=== PATIENT | female | born 1950 | race Caucasian/White ===

== ENCOUNTER → 2017-03-07 07:08 | Outpatient (CLI) | payer MEDICARE, MEDICAID, SELFPAY ==
--- NOTE | 2017-03-08 08:45 | PFT ---
INTRODUCTION: The patient is a 66-year-old female currently under the care of myself the presents for pulmonary function testing secondary to a diagnosis of dyspnea. Respiratory therapy reports good patient effort and reports no other concerns. Bronchodilators were used during testing. INTERPRETATION: Forced expiration spirometry demonstrates no evidence of a large airways obstructive ventilatory defect. There was no significant response to aerosolized bronchodilators, based upon strict ATS criteria. Spirograms are of good quality and plateau normally. The respiratory flow volume loop appears normal. Body plethysmography was performed and reveals lung volumes to be within normal limits. The airway resistance is within normal limits. Diffusing capacity by single breath CO is moderately reduced at 54% of predicted. IMPRESSION: These pulmonary function studies demonstrate the presence of an isolated moderate reduction in diffusing capacity, which may be related to an underlying pulmonary vascular disorder such as pulmonary hypertension. A surface echocardiogram can be obtained for further evaluation, if clinically indicated.
== END ==
PROVIDERS: Family Provider Family Medicine; PCP Family Medicine; Visit Provider Nurse Practitioner Acute Care
DX: R06.00 Dyspnea, unspecified (principal)
CPT/HCPCS: 94060; 94726; 94729

== ENCOUNTER 2019-08-28 10:44 | Emergency (ER) | payer MEDICARE, MEDICAID, SELFPAY ==
[2018-03-30 11:10] VITALS: BMI 38.6
[2019-08-28 10:47] VITALS: BP 136/67; PULSE 77; RESP 16; TEMP 37.1; O2SAT 95; BMI 41.7
--- NOTE | 2019-08-28 11:05 | ED.DCSUM_ITS ---
- ER Visit Summary Date of Service: 08/28/19 Chief Complaint: Right knee pain History of Present Illness: The patient is a 69 F who presents with right knee pain that has been getting worse over the past week. Patient states that last night she felt a pop behind her right knee. Patient states that since that time she has been having trouble ambulating and weightbearing. Patient describes her pain is sharp and stabbing. Patient states her right knee feels weak. Patient states she normally walks with a cane and has been using that to help her get around. Patient denies any paresthesias. Patient denies any other injuries. Physical Examination: Vital signs are stable. Patient is afebrile. Patient is in no acute distress. Musculoskeletal exam reveals tenderness over the posterior aspect of the right knee. There is no effusion. There is no bony crepitance or step-off. There is no edema or ecchymosis. Range of motion was limited in all motions of the right knee secondary to pain. Patient was guarding on examination but there is no laxity appreciated. Pedal pulses are equal bilaterally. Capillary refill was less than 2 seconds in all digits. There are no sensory deficits noted. There is no calf tenderness or edema. Test Results: X-rays of the right knee were obtained. There is some mild degenerative changes but no acute fracture. This was interpreted by the radiologist and reviewed by myself. Emergency Department Course and Treatment: Patient was given an injection of morphine. Patient was given a knee immobilizer. Patient was instructed to ice and elevate the right knee. Patient was instructed to follow-up with her primary care physician in 5 to 7 days. Patient was given a prescription for a short course of Brewster. Patient was instructed to return if worse in any way. Patient understood and was agreeable with the plan. All questions were answered. Disposition: Discharge home Impression: Right knee pain This note was generated with [employer] dictation software. It may contain incorrect words, spelling, and punctuation that were not noted in review of the chart prior to signing ED Disposition - Plan for ED Patient: Disposition: Home or Assisted Living Diagnosis: Right knee pain Instructions: ED Knee Pain [facility] Prescriptions: Hydrocodone Bitart/Apap 5-325 [Brewster 5MG-325MG] 1 tab PO Q6H PRN PRN 3 Days #10 tab PRN Reason: Pain Prescription Printed Referrals: Mir Todd MD [Primary Care Provider] - 5-7 Days
[2019-08-28] MEDS: Morphine 4 MG/ML Syringe IM (11:18)
--- NOTE | 2019-08-28 12:01 | RAD_ITS ---
STUDY: X-RAY - RIGHT KNEE REASON FOR EXAM: Female, 69 years old. RIGHT KNEE PAIN. NKI TECHNIQUE: 4 view(s) of the knee. COMPARISON: None. FINDINGS: Normal visualized distal femur. Normal visualized proximal tibia and fibula. Normal proximal tibiofibular articulation. There is mild degenerative arthrosis of the medial femorotibial compartment. There is mild degenerative arthrosis of the lateral femorotibial compartment. There is mild degenerative arthrosis of the patellofemoral articulation. The soft tissue structures are unremarkable. RAD/Knee 4 or More Views IMPRESSION: Mild arthrosis Electronically Signed: Juan M Lebron MD at 12:16 EDT , Service support ,
[2019-08-28 14:11] VITALS: RESP 20
== END 2019-08-28 14:14 | disposition home or self-care (01) ==
PROVIDERS: Emergency Provider Emergency Medicine; PCP Family Medicine
DX: M25.561 Pain in right knee (principal); R11.0 Nausea; Z79.899 Other long term (current) drug therapy
CPT/HCPCS: 73564; 96372; 99284

== ENCOUNTER 2020-01-27 15:28 | Emergency (ER) | payer MEDICARE, MEDICAID, SELFPAY ==
[2020-01-27 15:36] VITALS: BP 123/75; PULSE 85; RESP 16; TEMP 36.3; O2SAT 95; BMI 37.2
--- NOTE | 2020-01-27 16:05 | RAD_ITS ---
STUDY: X-RAY - LUMBAR SPINE REASON FOR EXAM: Female, 69 years old. FALL. LOW BACK PAIN. TECHNIQUE: 3 view(s) of the lumbar spine were obtained. COMPARISON: None FINDINGS: Normal lumbar lordosis. There is no substantial scoliosis. There is 4 mm anterolisthesis of L3 relative to L2, 5 mm anterolisthesis of L4 relative to L3, 4 mm anterolisthesis of L5 relative to L4. Otherwise normal normal alignment of the vertebrae. There is multilevel endplate spondylosis of the lumbar vertebrae. There is multi-level degenerative disc disease with multi-level disc space narrowing. Findings most pronounced at L2-L3 and L3-L4. There is no demonstrated fracture. The soft tissue structures are unremarkable. RAD/Lumbar Spine 2 or 3 Views IMPRESSION: Degenerative changes. No acute abnormalities. Electronically Signed: Lio Lilly MD at 16:40 EST , Service support ,
--- NOTE | 2020-01-27 16:05 | RAD_ITS ---
STUDY: X-RAY - LEFT SHOULDER REASON FOR EXAM: Female, 69 years old. FALL. LEFT SHOULDER PAIN. TECHNIQUE: 4 view(s) of the shoulder. COMPARISON: None. FINDINGS: There is moderate degenerative arthrosis of the glenohumeral articulation. Prominent inferior osteophyte off of the humeral head. There is hypertrophic osteoarthrosis of the acromioclavicular joint with inferior osseous spur formation. Normal acromion. Normal humeral head and visualized proximal humerus. The soft tissue structures are unremarkable. There is no demonstrated fracture. Normal visualized pulmonary apex. RAD/Shoulder min 2 Views IMPRESSION: No acute fracture or dislocation. Prominent degenerative changes. Electronically Signed: Lio Lilly MD at 16:41 EST , Service support ,
--- NOTE | 2020-01-27 16:06 | ED.VIS.GEN ---
History of Present Illness Chief Complaint: Fall Informant: Patient Onset: Today Context: Sudden Onset Timing: Continuous Current Severity: Moderate Maximum Severity: Moderate Narrative: The patient is a 69-year-old female with medical history significant for diabetes, hypertension, and bipolar disorder presents to the emergency department after a fall. Patient states that she was walking in her trailer. She states she lost her balance and fell. She landed on her left knee and struck her left shoulder. She states she did not hit her head. She denies loss of consciousness. 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 She is still able to ambulate. She states she took some Tylenol this morning which seemed to help. She states she is otherwise been in her normal state of health. Prior similar symptoms: No Recent Illness/Hospitalization: No Past Medical History - Allergies and Home Meds Allergies/Adverse Reactions: Allergies lamotrigine [From Lamictal] Allergy (Verified 01/27/20 15:41) Rash naproxen Allergy (Verified 01/27/20 15:41) Shortness of breath propranolol Allergy (Verified 01/27/20 15:41) Other MUSCLE CRAMPS divalproex sodium [From Depakote] Adverse Reaction (Verified 01/27/20 15:41) Unknown risperidone [From Risperdal] Adverse Reaction (Verified 01/27/20 15:41) Unknown Primary Care Physician: Mir Todd MD [Primary Care Provider] - Prior records reviewed: Yes Past Medical History: - - Bipolar disorder, diabetes, hypertension Surgical History: noncontributory Smoking Status: Former smoker - Family History Paternal Family History: Family History (Last Reviewed 03/30/18 @ 11:09 by Margaret Harding) Father Heart disease Sister Heart disease Family History: Reports: Heart Disease Review of Systems General: Denies: Chills, Fever, Sweats Eyes: Denies: Visual changes - bilaterally, Diplopia ENT: Denies: Rhinorrhea, Sore throat Cardiovascular: Denies: Chest pain, Palpitations Respiratory: Denies: Dyspnea, Cough, Dyspnea on exertion Gastrointestinal: Denies: Abdominal pain, Nausea, Vomiting, Diarrhea, Melena, Hematochezia Genitourinary: Denies: Dysuria, Hematuria, Frequency Musculoskeletal: Denies: Back pain, Extremity Pain Skin: Denies: Rash, Wounds Neurological: Denies: Headache, Weakness, Numbness Physical Exam Vital Signs/Narrative: Vital Signs Temp Pulse Resp BP Pulse Ox 01/27/20 15:36 97.4 F L 85 16 123/75 H 95 Inital Vital Signs reviewed: Yes General: Well nourished, Well developed, No Acute Distress Head: Normocephalic, Atraumatic Eyes: Perrl, EOMI ENT: Moist mucous membranes, No rhinorrhea Neck: Supple, Nontender Cardiovascular: Regular rate, Regular rhythm, No murmurs Respiratory: No distress, CTA bilaterally, Chest nontender Abdomen: Soft, Nontender, Nondistended, Normal bowel sounds Back: Normal Inspection. Negative for: CVA tenderness, Spinal tenderness Extremities: No edema, Tenderness - Mild tenderness over anterior left knee. Extension preserved. No gross laxity. Mild pain with abduction of the left shoulder with no laxity. Axillary nerve preserved. Skin: Normal color, No rash Neurological: Alert, Oriented x3, Cranial nerves II-XII grossly intact, Normal Strength, Normal Sensation Psychological: Normal affect, Normal Mood Diagnostic/Tx/Re-eval Clinical Impression(s) from Imaging Studies Lumbar Spine X-Ray 01/27/20 16:05 IMPRESSION: Degenerative changes. No acute abnormalities. Electronically Signed: Lio Lilly MD at 16:40 EST , Service support , Shoulder X-Ray 01/27/20 16:05 IMPRESSION: No acute fracture or dislocation. Prominent degenerative changes. Electronically Signed: Lio Lilly MD at 16:41 EST , Service support , Knee X-Ray 01/27/20 16:10 IMPRESSION: Normal x-ray examination of the knee. Electronically Signed: Lio Lilly MD at 16:38 EST , Service support , - Medical Decision Making Patient presents after mechanical fall. She was given a Tylenol to help with her pain. I did obtain plain films of the left shoulder, lumbar spine, and left knee. These were reviewed by both myself and the radiologist. There is no evidence of fracture, dislocation or other dangerous process. At this point, I do feel that her symptoms are likely secondary to contusion. The patient was reassured. At this point, she will be discharged home. She is comfortable with this plan of care. Impression 1. Mechanical fall 2. Left shoulder contusion 3. Left knee contusion ED Disposition - Plan for ED Patient: Instructions: ED Mechanical Fall Referrals: Mir Todd MD [Primary Care Provider] -
--- NOTE | 2020-01-27 16:10 | RAD_ITS ---
STUDY: X-RAY - LEFT KNEE REASON FOR EXAM: Female, 69 years old. FALL. LEFT KNEE PAIN. TECHNIQUE: 4 view(s) of the knee. COMPARISON: None. FINDINGS: Normal visualized distal femur. Normal visualized proximal tibia and fibula. Normal proximal tibiofibular articulation. There is no demonstrated fracture. Normal medial femorotibial compartment. Normal lateral femorotibial compartment. Normal patellofemoral articulation. There is no demonstrated joint effusion. The soft tissue structures are unremarkable. RAD/Knee 4 or More Views IMPRESSION: Normal x-ray examination of the knee. Electronically Signed: Lio Lilly MD at 16:38 EST , Service support ,
[2020-01-27] MEDS: Acetaminophen 500 MG Tablet 1000 MG PO (16:45)
== END 2020-01-27 16:53 | disposition home or self-care (01) ==
LOC: ED 16:46
PROVIDERS: Emergency Provider Emergency Medicine; PCP Family Medicine
DX: S40.012A Contusion of left shoulder, initial encounter (principal); S80.02XA Contusion of left knee, initial encounter; W18.30XA Fall on same level, unspecified, initial encounter; Y93.01 Activity, walking, marching and hiking; Y92.029 Unspecified place in mobile home as the place of occurrence of the external cause; Y99.9 Unspecified external cause status; E11.9 Type 2 diabetes mellitus without complications; I10 Essential (primary) hypertension; F31.9 Bipolar disorder, unspecified; Z79.84 Long term (current) use of oral hypoglycemic drugs; Z79.899 Other long term (current) drug therapy; Z87.891 Personal history of nicotine dependence
CPT/HCPCS: 72100; 73030; 73564; 99284